=== PATIENT | female | born 1975 | race Two or more races ===

== ENCOUNTER 2019-06-23 15:50 | Emergency (ER) | payer OTHER ==
[~2019-06-23] VITALS: Ht 165.1 cm; Wt 52.3 kg
[~2019-06-23 15:50] MED LIST: ALBU17AE27 IH; FLUT1DIS3 IH; LEVA0.6319 IH; LEVO75TA12 PO; MONT10TA21 PO
[2019-06-23] MEDS ORDERED: IPRATROPIUM BROMIDE 0.5 MG/2.5 ML NEB SOLUTION NEB ONE (17:45)
[2019-06-23] MEDS ORDERED: ALBUTEROL SULFATE 2.5 MG/0.5 ML NEB SOLUTION NEB ONE (17:45)
[2019-06-23] MEDS ORDERED: ALBUTEROL SULFATE HFA 90 MCG/PUFF 8 GM INHALER IH ONE (17:45)
[2019-06-23 19:16] VITALS: BP 138/75
== END 2019-06-23 19:36 | disposition home or self-care (01) ==
LOC: EMS 15:52
DX: J20.8 Acute bronchitis due to other specified organisms (principal); J06.9 Acute upper respiratory infection, unspecified; J45.909 Unspecified asthma, uncomplicated; Z88.6 Allergy status to analgesic agent; Z88.8 Allergy status to other drugs, medicaments and biological substances; Z79.899 Other long term (current) drug therapy
CPT/HCPCS: 94640; 94664; J3535

== ENCOUNTER 2019-07-07 19:22 | Emergency (ER) | payer OTHER ==
[~2019-07-07] VITALS: Ht 165.1 cm; Wt 63.6 kg
[~2019-07-07 19:22] MED LIST changes: -LEVA0.6319 IH
[2019-07-07] MEDS ORDERED: ALBUTEROL SULFATE 2.5 MG/0.5 ML NEB SOLUTION NEB ONE (19:45)
[2019-07-07] MEDS ORDERED: IPRATROPIUM BROMIDE 0.5 MG/2.5 ML NEB SOLUTION NEB ONE (19:45)
[2019-07-07] MEDS ORDERED: ACETAMINOPHEN 325 MG TABLET PO ONE (20:15)
[2019-07-07] MEDS ORDERED: DEXAMETHASONE SOD PHOS 4 MG/ML 5 ML VIAL IM ONE (20:15)
[2019-07-07] MEDS ORDERED: ONDANSETRON HCL 4 MG TABLET PO ONE (21:00)
[2019-07-07] MEDS ORDERED: GuaiFENesin/CODEINE [SUGAR FREE] 200-20MG/10 ML SYRUP UDCUP PO ONE (21:30)
[2019-07-07 22:11] VITALS: BP 128/79
== END 2019-07-07 22:32 | disposition home or self-care (01) ==
LOC: EMS 19:22
DX: J45.909 Unspecified asthma, uncomplicated (principal); Z79.899 Other long term (current) drug therapy; Z88.6 Allergy status to analgesic agent; Z88.8 Allergy status to other drugs, medicaments and biological substances
CPT/HCPCS: 71045; 94640; 96372; 99284; J1100; Q0162; 94060

== ENCOUNTER 2019-07-23 09:18 | Emergency (ER) | payer OTHER ==
[~2019-07-23] VITALS: Ht 165.1 cm; Wt 77.3 kg
[2019-07-23] MEDS ORDERED: PredniSONE 20 MG TABLET PO ONE (10:30)
[2019-07-23 11:39] VITALS: BP 146/86
== END 2019-07-23 11:40 | disposition home or self-care (01) ==
LOC: EMS 09:18
DX: J45.909 Unspecified asthma, uncomplicated (principal); Z88.6 Allergy status to analgesic agent; Z88.8 Allergy status to other drugs, medicaments and biological substances; Z79.899 Other long term (current) drug therapy
CPT/HCPCS: 99283; J7512

== ENCOUNTER 2019-08-05 22:14 | Emergency (ER) | payer OTHER ==
[~2019-08-05] VITALS: Ht 165.1 cm; Wt 56.8 kg
[2019-08-06] MEDS ORDERED: ALBUTEROL SULFATE HFA 90 MCG/PUFF 8 GM INHALER IH ONE
[2019-08-06] MEDS ORDERED: PredniSONE 20 MG TABLET PO ONE
[2019-08-06 01:43] VITALS: BP 145/80
== END 2019-08-06 02:32 | disposition home or self-care (01) ==
LOC: EMS 22:17
DX: J45.901 Unspecified asthma with (acute) exacerbation (principal); Z88.6 Allergy status to analgesic agent; Z88.8 Allergy status to other drugs, medicaments and biological substances
CPT/HCPCS: 94640; 99283; J7512; J3535

== ENCOUNTER 2024-01-02 12:48 | Emergency (ER) | payer OTHER ==
[~2024-01-02] VITALS: Ht 162.6 cm; Wt 79.5 kg
[~2024-01-02 12:48] MED LIST changes: +DESL5TAB39 PO; +FLUT16SP NASAL; -FLUT1DIS3 IH; +FLUT1DIS6 IH; +MONT-35 PO; -MONT10TA21 PO; +PRED-554 PO
[2024-01-02 12:51] VITALS: TEMP 97.6
[2024-01-02 14:27] VITALS: BP 113/68
[2024-01-02] MEDS: PredniSONE 20 MG TABLET PO ONE (14:46)
[2024-01-02 15:11] LABS: BASOPHILS % (AUTO) 0.2 % (0.0-2.0); EOSINOPHILS % (AUTO) 1.5 % (1.0-6.0); HEMATOCRIT 42.5 % (36-46); HEMOGLOBIN 14.1 g/dL (12.0-16.0); LYMPHOCYTES # (AUTO) 0.6 K/uL (1.0-4.8); LYMPHOCYTES % (AUTO) 14.5 % (22.0-44.0); MEAN CORPUSCULAR HEMOGLOBIN 30.8 pg (26.0-34.0); MEAN CORPUSCULAR HGB CONC 33.2 G/dL (31.0-37.0); MEAN CORPUSCULAR VOLUME 93 fL (80-100); MONOCYTES # (AUTO) 0.5 K/uL (0.1-1.0); MONOCYTES % (AUTO) 10.5 % (2.0-9.0); NEUTROPHILS # (AUTO) 3.2 K/uL (1.8-7.7); NEUTROPHILS % (AUTO) 73.3 % (40.0-70.0); PLATELET COUNT (AUTO) 274 K/uL (150-450); RED BLOOD CELL COUNT(AUTO) 4.57 MIL/uL (4.00-5.20); RED CELL DISTRIBUTION WIDTH 13.2 % (11.5-14.5); WHITE BLOOD COUNT (AUTO) 4.3 K/uL (4.5-11.0)
[2024-01-02] MEDS: IPRATROPIUM BROMIDE 0.5 MG/2.5 ML NEB SOLUTION NEB ONE (15:17)
[2024-01-02] MEDS: ALBUTEROL SULFATE 2.5 MG/0.5 ML NEB SOLUTION NEB ONE (15:17)
[2024-01-02 15:18] VITALS: PULSE 116; RESP 18; O2SAT 96
[2024-01-02 15:20] VITALS: PULSE 116; RESP 18; O2SAT 96
[2024-01-02 15:23] LABS: ANION GAP 10 mmol/L (8-16); CALCIUM, TOTAL 8.9 mg/dL (8.8-10.5); CARBON DIOXIDE 27 mmol/L (22-29); CHLORIDE 98 mmol/L (98-107); CREATININE 0.78 mg/dL (0.60-1.30); GLOMERULAR FILTR. RATE CALC > 60 mL/min (>60); GLUCOSE,RANDOM 88 mg/dL (70-110); POTASSIUM 3.5 mmol/L (3.5-5.1); SODIUM SERUM 135 mmol/L (136-145); UREA NITROGEN, BLOOD 7 mg/dL (7-18)
[2024-01-02 15:35] LABS: B-TYPE NATRIURETIC PEPTIDE 167 pg/mL (0-100)
[2024-01-02 16:06] LABS: TROPONIN I-HIGH SENSITIVITY 5 ng/L (<51)
[2024-01-02] MEDS ORDERED: PRED-554 PO (16:12)
[2024-01-02 16:15] LABS: COVID AG,FIA SOURCE NASAL SWAB
[2024-01-02 16:43] LABS: INFLUENZA TYPE A NEGATIVE FOR TYPE A (NEGATIVE); INFLUENZA TYPE B NEGATIVE FOR TYPE B (NEGATIVE)
[2024-01-02 17:01] LABS: RBC MORPHOLOGY COMMENT ABNORMAL RBC MORPH
[2024-01-02 17:17] LABS: SARS-COV2 (COVID) ANTIGEN,FIA Positive (Negative)
== END 2024-01-02 16:26 | disposition home or self-care (01) ==
LOC: EMS 12:48
DX: J45.909 Unspecified asthma, uncomplicated (principal); Z88.6 Allergy status to analgesic agent; Z88.8 Allergy status to other drugs, medicaments and biological substances; Z20.822 Contact with and (suspected) exposure to COVID-19
CPT/HCPCS: 99285; 71045; 87426; 80048; 83880; 84484; 85025; 87804; 36415; 94640; 93005; J7512; J7613